=== PATIENT | female | born 1985 | race Caucasian/White ===

== ENCOUNTER 2017-05-27 13:20 | Emergency (ER) | payer OTHER ==
--- NOTE | ~2017-05-27 | US98 ---
[facility] A Service of [facility] RADIOLOGY TEXT RESULTS PATIENT: JORGE ALEXANDRE LOCATION: SED : 83 UNIT #: [id number] AGE: [address]: Alec Borden MD SEX: F ORDER DR: [id number] [address] [address] [id number] E MR#: [id number] Acc #: [id number] NAME: JORGE ALEXANDRE : 1985 SEX: F STUDY DATE/TIME: 05/27/2017 14:35 UNIT: SED ROOM: STUDY DESCRIPTION: US Pelvic Non-OB Complete Attending Physician: Alec Borden M.D. Ordering Physician: Alec Borden M.D. Primary Care Physician: [facility]. MEDICAL IMAGING REPORT This report is preliminary unless electronic signature is present. EXAM Pelvic ultrasound HISTORY Pelvic pain for 1 day. FINDINGS Ultrasound examination of the pelvis was performed with transabdominal and endovaginal technique. 1.5 cm fibroid in the posterior uterine fundus. No endometrial thickening or endometrial fluid. Minimal free fluid in the pelvis. The endometrium measures 5 mm in thickness. Neither ovary is identified by either transabdominal or endovaginal scanning. Bowel gas limits visualization of the ovaries in the adnexa bilaterally. IMPRESSION 1. 1.5 cm incidental fibroid in the posterior uterine fundus. 2. No endometrial thickening or endometrial fluid. 3. Minimal free fluid in the pelvis is also likely incidental and physiologic. 4. Neither ovary is identified by transabdominal or endovaginal scanning. Dictated by... Julius Mireles M.D. THIS IS AN ELECTRONICALLY VERIFIED REPORT Julius Mireles M.D. at 05/28/2017 2:34 PM DFL/rebecca TD: 05/28/2017 06:12 JOB #: [id number] [facility] A Service of [facility] RADIOLOGY TEXT RESULTS PATIENT: SATORI,JORGE LOCATION: SED : 83 UNIT #: [id number] AGE: [address]: Alec Borden MD SEX: F ORDER DR: MEDICAL IMAGING REPORT Page 1 of 1
[~2017-05-27 13:20] MED LIST: AMOXICILLIN500 M1 PO; ANAPROX DS550 M1 PO; BENZONATATE; BIRTH CONTROL PILL PO; DEPO-ESTRADIO5 MG/ML INJ; DICLOFENAC; FLAGYL PO; FLEXERIL10 MG PO; NAPROXEN PO; ORTHO TRI-7 DAYS X PO; ORTHO-NOVUM1 TA1; PHENERGAN25 M1 PO; PRENATAL VITAMI1 TA3; ROBITUSSIN A-C-S1 ML PO; ZITHROMAX PO
[2017-05-27 14:07] LABS: URINE SOURCE CLEAN CATCH
[2017-05-27 14:10] LABS: URINE APPEARANCE HAZY; URINE BILIRUBIN NEG (NEG); URINE BLOOD 3+ (NEG); URINE COLOR YELLOW; URINE GLUCOSE NEG (NORM); URINE KETONE NEG (NEG); URINE LEUKOCYTE ESTERASE TRACE (NEG); URINE NITRATE NEG (NEG); URINE PH 5.5 (5-8); URINE PROTEIN NEG (NEG); URINE SPECIFIC GRAVITY >=1.030 (1.003-1.035); URINE UROBILINOGEN 0.2 MG/DL (NORM)
[2017-05-27 14:12] LABS: MICRO INDICATED? YES
[2017-05-27 14:14] LABS: CULTURE INDICATED? YES; URINE BACTERIA 1+ (NEG); URINE SQUAMOUS EPITHELIAL CELL MANY /[HPF]
[2017-05-30 11:14] LABS: CHLAMYDIA TRACH Not Detected (Not Detected); N GONOR Not Detected (Not Detected)
== END 2017-05-27 16:36 | disposition home or self-care (01) ==
LOC: SED 13:20
PROVIDERS: Emergency Medicine
DX: D25.9 Leiomyoma of uterus, unspecified (principal); Z98.51 Tubal ligation status; Z98.890 Other specified postprocedural states; Z88.2 Allergy status to sulfonamides; Z88.8 Allergy status to other drugs, medicaments and biological substances
CPT/HCPCS: 76830; 76856; 81003; 84703; 87086; 87491; 87591; 99284